=== PATIENT | male | born 1970 | race Asian ===

== ENCOUNTER 2018-12-10 10:48 | Inpatient (IN) | payer OTHER ==
[~2018-12-10] VITALS: Ht 177.8 cm; Wt 68.0 kg
[2018-12-10] VITALS (14 sets, daily range): BP systolic 102–128; BP diastolic 61–89
[~2018-12-10 10:48] MED LIST: ceFAZolin sod 2 GM in D5W 110 ML IVPB SCH
[2018-12-10] MEDS ORDERED: LR 1000ml 1,000 ML IVLG SCH (11:19)
[2018-12-10] MEDS ORDERED: Meperidine 50mg/ml Inj(FOR RIGORS ONLY) IVP PRN (11:30)
[2018-12-10] MEDS ORDERED: fentaNYL 100 mcg/2 mL IV PRN (11:30)
[2018-12-10] MEDS ORDERED: Hydromorphone 0.5mg/0.5ml inj IVP PRN (11:30)
[2018-12-10] MEDS ORDERED: Ketorolac 30mg Inj IV PRN ×2 (11:30)
[2018-12-10] MEDS ORDERED: HYDROcodone/Acetamin 7.5/325 tab ORAL PRN ×3 (11:30→16:00)
[2018-12-10] MEDS ORDERED: Metoclopramide 10mg/2ml Inj IVP PRN ×2 (11:30→16:00)
[2018-12-10] MEDS ORDERED: LORazepam Inj 2mg/ml 1ml IV PRN (11:30)
[2018-12-10] MEDS ORDERED: Norco 5mg/325mg tab ORAL PRN ×2 (11:30→16:00)
[2018-12-10] MEDS ORDERED: oxyCODONE HCL/Acetaminophen 5/325mg ORAL PRN (11:30)
[2018-12-10] MEDS ORDERED: DiphenhydrAMINE 50mg/ml Inj IVP PRN (11:30)
[2018-12-10] MEDS ORDERED: Midazolam 2mg/2ml Inj IVP PRN (11:30)
[2018-12-10] MEDS ORDERED: Atropine Sulfate 0.4mg/ml inj IVP PRN (11:30)
[2018-12-10] MEDS ORDERED: Acetaminophen (Non formulary) 100 ML IV ONE (11:30)
--- NOTE | 2018-12-10 11:40 | 48 Hour Post Anesthesia Eval ---
Post Anesthesia Evaluation Procedure: ACDF C6-7 Date of Evaluation: Dec 10, 2018 Time of Evaluation: 18:12 Blood Pressure Systolic: 132 0: 64 Pulse Rate: 67 Respiratory Rate: 18 Temperature (Fahrenheit): 98.4 O2 Sat by Pulse Oximetry: 99 Airway: patent Nausea: No Vomiting: No Pain Intensity: 2 Hydration Status: adequate Cardiopulmonary Status: Stable Mental Status/LOC: patient returned to baseline Follow-up Care/Observations: 0 Post-Anesthesia Complications: 0 Follow-up care needed: ready to discharge Gatito Terrell MD Dec 10, 2018 11:40
--- NOTE | 2018-12-10 11:40 | Immediate Post-Op Evaluation ---
Immediate Post-Op Evalulation Immediate Post-Op Evalulation Procedure: ACDF C6-7 Date of Evaluation: Dec 10, 2018 Time of Evaluation: 16:08 IV Fluids: 800 LR Blood Products: 0 Estimated Blood Loss: 20 Urinary Output: 0 Blood Pressure Systolic: 122 Blood Pressure Diastolic: 89 Pulse Rate: 76 Respiratory Rate: 16 O2 Sat by Pulse Oximetry: 100 Temperature (Fahrenheit): 97.2 Pain Score (1-10): 2 Nausea: No Vomiting: No Complications 0 Patient Status: awake, reacts, patent, extubated, none Hydration Status: adequate Dru Grams Ancef IV Given Within 1 Hr of Incision: Yes Time Given: 14:16 Gatito Terrell MD Dec 10, 2018 11:40
--- NOTE | 2018-12-10 12:08 | Anethesia Preoperative Eval ---
Anesthesia Pre-op PMH/ROS General Date of Evaluation: Dec 10, 2018 Time of Evaluation: 14:02 Anesthesiologist: Xander ASA Score: ASA 1 Mallampati Score Class I : Soft palate, uvula, fauces, pillars visible Class II: Soft palate, uvula, fauces visible Class III: Soft palate, base of uvula visible Class IV: Only hard plate visible Mallampati Classification: Class II Surgeon: Manuel Diagnosis: Neck Pain Surgical Procedure: ACDF C6-7 Family History: no anesthesia problems Allergies: Coded Allergies: No Known Allergies (Unverified , 12/09/18) Medications: see eMAR Patient NPO?: Yes NPO Date: Dec 09, 2018 NPO Time: 2330 Past Medical History PSxH Narrative: Abdominal SX Anesthesia Pre-op Phys. Exam Physician Exam Last Vital Signs Date Time Temp Pulse Resp B/P (MAP) Pulse Ox O2 Delivery O2 Flow Rate FiO2 12/10/18 11:57 98.3 63 18 111/73 (86) 96 Constitutional: NAD Neurologic: CN 2-12 intact Cardiovascular: RRR Respiratory: CTA Gastrointestinal: S/NT/ND Airway Exam Mallampati Score: Class II MO: full ROM: limited Teeth: intact Anesthesia Pre-op A/P Risk Assessment & Plan Assessment: ASA 1 Plan: GA, SED, GlideScope Go Pre-Antibiotics Dru Grams Ancef IV Given Within 1 Hr of Incision: Yes Time Given: 14:16 Gatito Terrell MD Dec 10, 2018 12:08
[2018-12-10] MEDS ORDERED: Sodium Chloride 10ml vial INJ ONE (12:16)
[2018-12-10] MEDS ORDERED: Lidocaine 1% MPF 10mg/ml 5ml ONE (12:16)
[2018-12-10] MEDS ORDERED: Dexamethasone 4mg/ml vial ONE (12:16)
[2018-12-10] MEDS ORDERED: fentaNYL 100 mcg/2 mL IV ONE (12:17)
[2018-12-10] MEDS ORDERED: NKM (12:21)
[2018-12-10] MEDS ORDERED: Lidocaine 1% Plain 30 ml INJ ONE (12:22)
[2018-12-10] MEDS ORDERED: Vancomycin 1gm vial IVPB ONE (13:13)
[2018-12-10] MEDS ORDERED: Bacitracin 50000 Units Vial ONE (13:14)
[2018-12-10] MEDS ORDERED: Thrombin 5000 units TOPIC ONE (13:14)
[2018-12-10] MEDS ORDERED: Gelfoam Size TOPIC ONE (13:14)
[2018-12-10] MEDS ORDERED: Sterile Water Irrig 1000ml IRRIG ONE (14:00)
[2018-12-10] MEDS ORDERED: Zemuron 50mg/5ml Inj IV ONE (14:00)
[2018-12-10] MEDS ORDERED: NS Irrig 1000ml ONE (14:00)
[2018-12-10] MEDS ORDERED: LR 1000ml ONE (14:00)
[2018-12-10] MEDS ORDERED: Propofol 1,000mg/ 100ml btl IV ONE (14:00)
[2018-12-10] MEDS ORDERED: Glycopyrrolate 0.2mg/ml 1ml Vial ONE (15:25)
[2018-12-10] MEDS ORDERED: Neostigmine 1mg/ml 10ml Inj ONE (15:25)
--- NOTE | 2018-12-10 15:45 | Pre-Procedure Note/Attestation ---
Pre-Procedure Note/Attestation Complete Prior to Procedure Planned Procedure: not applicable Procedure Narrative: ACDF C67 Indications for Procedure Pre-Operative Diagnosis: C67 hnp Attestation I attest that I discussed the nature of the procedure; its benefits; risks and complications; and alternatives (and the risks and benefits of such alternatives ), prior to the procedure, with the patient (or the patient's legal special service representative). I attest that, if there was a reasonable possibility of needing a blood transfusion, the patient (or the patient's legal special service representative) was given the [facility] standardized written summary, pursuant to the [place] Blood Safety Act ([place] Health and Safety Code # 1645, as amended). I attest that I re-evaluated the patient just prior to the surgery and that there has been no change in the patient's H&P, except as documented below: Juan J Jackson MD Dec 10, 2018 15:45
--- NOTE | 2018-12-10 15:46 | Brief Operative Note ---
Immediate Post Operative Note Operative Note Chief Complaint: hnp radiculopathy Pre-op Diagnosis: C67 hnp Procedure: ACDF C67 Post-op Diagnosis: same as pre-op Findings: consistent w/pre-op dx studies Surgeon: Manuel Forensic Identification Specialist: Gabrielle Anesthesia: general Specimen: none Complications: none Condition: stable Fluids: ivf Estimated Blood Loss: minimal Drains: none Implant(s) used?: Yes - nuvasive Juan J Roberts MD Dec 10, 2018 15:46
[2018-12-10] MEDS ORDERED: Milk of Magnesia 30ml Ud ORAL PRN (16:00)
[2018-12-10] MEDS ORDERED: HYDROmorphone 1mg/ml Carpuject IVP PRN (16:00)
[2018-12-10] MEDS ORDERED: Morphine Sulfate 4mg/ml Inj (IV/IM USE ONLY) IV PRN ×2 (16:00)
[2018-12-10] MEDS ORDERED: Chloraseptic Spray 20mL Bottle ORAL PRN (16:00)
[2018-12-10] MEDS ORDERED: Naloxone 0.4mg/ml Inj IVP PRN (16:00)
[2018-12-10] MEDS ORDERED: Morphine Sulfate 2mg/ml Inj IV PRN (16:00)
--- NOTE | 2018-12-10 17:13 | Diagnostic Imaging Report ---
INDICATION: Pain, intraoperative TECHNIQUE: Intraoperative imaging Fluoroscopy time: 5 seconds Total dose: 0.70405 mGym2 Total number of images: 2 COMPARISON: None FINDINGS: Intraoperative images demonstrate anterior fusion hardware at C6-7. IMPRESSION: Intraoperative imaging, as described
[2018-12-10] MEDS: NS w/KCl 20mEq 1,000 ML IV SCH (18:27)
[2018-12-10] MEDS: Docusate 100mg cap ORAL SCH (18:28)
--- NOTE | 2018-12-10 18:28 | Cardiology Progress Note ---
Assessment/Plan Assessment/Plan [id number] seen at request of dr reddy hopefully home tomorrow when ok by surgery Objective Last 24 Hour Vital Signs Date Time Temp Pulse Resp B/P (MAP) Pulse Ox O2 Delivery O2 Flow Rate FiO2 12/10/18 16:53 97.8 58 16 119/81 99 Nasal Cannula 3 12/10/18 16:40 57 15 121/86 100 Nasal Cannula 3 12/10/18 16:30 58 15 125/82 100 Nasal Cannula 3 12/10/18 16:18 60 18 124/82 100 Simple Mask 6 12/10/18 16:07 71 15 128/85 100 Simple Mask 6 12/10/18 16:02 73 13 128/88 100 Simple Mask 6 12/10/18 15:57 97.2 76 16 123/89 100 Simple Mask 6 12/10/18 15:57 67 18 99 12/10/18 15:55 76 16 100 12/10/18 12:21 Room Air 12/10/18 11:57 98.3 63 18 111/73 (86) 96 Rivera Latham MD Dec 10, 2018 18:28
[2018-12-10] MEDS: Dexamethasone 4mg/ml vial IVP SCH (20:20)
[2018-12-10] MEDS: ceFAZolin sod 1 GM in D5W 55 ML IV SCH (21:37)
[2018-12-10] MEDS ORDERED: ceFAZolin sod 1 GM in D5W 55 ML IV SCH (22:00)
[2018-12-11] VITALS: BP 101/61
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
[2018-12-11] MEDS: Dexamethasone 4mg/ml vial IVP SCH ×2 (01:54→08:23)
[2018-12-11 04:00] VITALS: BP 101/61
[2018-12-11] MEDS: NS w/KCl 20mEq 1,000 ML IV SCH (04:11)
[2018-12-11] MEDS: ceFAZolin sod 1 GM in D5W 55 ML IV SCH (06:01)
[2018-12-11 08:00] VITALS: BP 99/61
[2018-12-11] MEDS: Docusate 100mg cap ORAL SCH (08:23)
[2018-12-11 12:00] VITALS: BP 116/66
--- NOTE | 2018-12-11 12:17 | General Progress Note ---
Assessment/Plan Assessment/Plan C67 hnp ACDF C67 PLAN 1. incentive spirometry 2. SCD 3. PT evaluation and therapy 4. Hydration 5. Pain management 6. discharge once stable with outpatient follow up Subjective Date patient seen: Dec 10, 2018 Allergies: Coded Allergies: No Known Allergies (Unverified , 12/09/18) Subjective asked to follow post op Objective Last 24 Hour Vital Signs Date Time Temp Pulse Resp B/P (MAP) Pulse Ox O2 Delivery O2 Flow Rate FiO2 12/10/18 18:30 97.7 60 18 108/74 (85) 100 12/10/18 18:00 97.8 61 18 105/73 (84) 99 12/10/18 17:30 97.4 63 18 107/75 (86) 97 12/10/18 16:53 97.8 58 16 119/81 99 Nasal Cannula 3 12/10/18 16:40 57 15 121/86 100 Nasal Cannula 3 12/10/18 16:30 58 15 125/82 100 Nasal Cannula 3 12/10/18 16:18 60 18 124/82 100 Simple Mask 6 12/10/18 16:07 71 15 128/85 100 Simple Mask 6 12/10/18 16:02 73 13 128/88 100 Simple Mask 6 12/10/18 15:57 97.2 76 16 123/89 100 Simple Mask 6 12/10/18 15:57 67 18 99 12/10/18 15:55 76 16 100 12/10/18 12:21 Room Air Height (Feet): 5 Height (Inches): 10.00 Weight (Pounds): 150 Objective WDWN NAD clear breath sounds bilaterally without rhonchi or wheeze [id number] without MRG NABS nontender no HSM no CCE nonfocal Yandel Orozco MD Dec 11, 2018 12:17
--- NOTE | 2018-12-11 12:18 | General Progress Note ---
Assessment/Plan Assessment/Plan C67 hnp ACDF C67 PLAN 1. incentive spirometry 2. SCD 3. able to ambulate 4. taking po 5. Pain management 6. discharge home Subjective Allergies: Coded Allergies: No Known Allergies (Unverified , 12/09/18) Subjective improved cleared for dc Objective Last 24 Hour Vital Signs Date Time Temp Pulse Resp B/P (MAP) Pulse Ox O2 Delivery O2 Flow Rate FiO2 12/11/18 08:46 Nasal Cannula 3.0 12/11/18 08:00 97.9 62 18 99/61 (74) 95 12/11/18 04:00 97.8 66 18 101/61 (74) 96 12/11/18 00:00 97.8 62 18 101/61 (74) 97 12/10/18 21:00 97.7 62 18 102/61 (75) 97 12/10/18 21:00 Nasal Cannula 3.0 12/10/18 20:00 97.8 62 18 109/71 (84) 96 12/10/18 19:00 97.7 62 18 109/76 (87) 99 12/10/18 18:59 97.8 12/10/18 18:30 97.7 60 18 108/74 (85) 100 12/10/18 18:00 97.8 61 18 105/73 (84) 99 12/10/18 17:30 97.4 63 18 107/75 (86) 97 12/10/18 16:53 97.8 58 16 119/81 99 Nasal Cannula 3 12/10/18 16:40 57 15 121/86 100 Nasal Cannula 3 12/10/18 16:30 58 15 125/82 100 Nasal Cannula 3 12/10/18 16:18 60 18 124/82 100 Simple Mask 6 12/10/18 16:07 71 15 128/85 100 Simple Mask 6 12/10/18 16:02 73 13 128/88 100 Simple Mask 6 12/10/18 15:57 97.2 76 16 123/89 100 Simple Mask 6 12/10/18 15:57 67 18 99 12/10/18 15:55 76 16 100 12/10/18 12:21 Room Air Intake and Output 12/10/18 12/11/18 19:00 07:00 Intake Total 1100 ml 1255 ml Output Total 20 ml 220 ml Balance 1080 ml 1035 ml IV Total 1100 ml 1255 ml Output Urine Total 200 ml Estimated Blood Loss 20 ml 20 ml # Voids 1 1 Height (Feet): 5 Height (Inches): 10.00 Weight (Pounds): 150 Objective WDWN NAD clear breath sounds bilaterally without rhonchi or wheeze [id number] without MRG NABS nontender no HSM no CCE nonfocal Yandel Orozco MD Dec 11, 2018 12:18
[2018-12-11] MEDS ORDERED: NORCO 10-325 T1 EACH ORAL (12:37)
[2018-12-11] MEDS ORDERED: SOMA350 MG PO (12:38)
[2018-12-11] MEDS ORDERED: Flu Vaccine (Alfuria) for Pts Less than 65 Years old IM ONE (14:00)
[2018-12-11] MEDS ORDERED: Tubing IV Secondary IV ONE (14:09)
--- NOTE | 2018-12-11 15:15 | Discharge Summary ---
DATE OF ADMISSION: 12/10/2018 DATE OF DISCHARGE: 12/11/2018 PROCEDURE PERFORMED DURING ADMISSION: ACDF, C6-C7. REASON FOR ADMISSION: Herniation, C6-C7. HOSPITAL COURSE/TREATMENT RENDERED: . DISCHARGE PHYSICAL EXAMINATION: 1. The patient was ambulating with and without the assistance of physical therapy. 2. Prior to discharge home incision was clean and dry with minimal swelling. 3. Follows commands. 4. Alert and oriented. 5. Loera discontinued, voiding. 6. Incentive spirometer at bedside. 7. IVF hep locked. MOTOR: Demonstrates expected postoperative bulk and tone. Moves biceps, triceps, and deltoid musculature on command. Moves hip flexors, quadriceps, tibialis anterior, EHL, gastrocsoleus musculature on command as well. TREATMENT RENDERED: 1. Daily nursing care. 2. Physical Therapy. 3. Occupational Therapy. 4. Intravenous medications. 5. Oral medications. 6. Daily postoperative examinations by Spine surgery team. CONDITION OF THE PATIENT ON DISCHARGE: The condition on discharge is stable for discharge to home. DISCHARGE INSTRUCTIONS: Our specific instructions relating to physical activity, medications diet and followup care are detailed in our standard operative folder and were given to this patient prior to surgery. We will however summarize these briefly as stated below. Regarding physical activity, we would like the patient to limit their flexion, extension, and rotation. We also require a limitation on their bending, lifting, and twisting. All medication has been called in prior to surgery to their pharmacy of choice. They can resume their regular diet once tolerated. We would like them to shower and limit soaking the wound in a tub/Jacuzzi/the ocean for a period of one month or until the incision is completely healed. We will have them follow up in our office in three weeks time for their regularly scheduled appointment. They understand to call our office tomorrow to schedule the time for their three week followup appointment. The patient will notify us should they experience any increase in the severity of pain, redness/swelling/ or drainage from their incision. Juan J Jackson M.D. DR: LETI JOB#: [id number] CC:
--- NOTE | 2018-12-11 15:45 | Discharge Summary ---
DATE OF ADMISSION: 12/10/2018 DATE OF DISCHARGE: 12/11/2018 PROCEDURE PERFORMED DURING ADMISSION: Anterior cervical discectomy and fusion, C6-C7. REASON FOR ADMISSION: Herniation, C6-C7. HOSPITAL COURSE/TREATMENT RENDERED: . DISCHARGE PHYSICAL EXAMINATION: 1. The patient was ambulating with and without the assistance of physical therapy. 2. Prior to discharge home incision was clean and dry with minimal swelling. 3. Follows commands. 4. Alert and oriented. 5. Loera discontinued, voiding. 6. Incentive spirometer at bedside. 7. IVF hep locked. MOTOR: Demonstrates expected postoperative bulk and tone. Moves biceps, triceps, and deltoid musculature on command. Moves hip flexors, quadriceps, tibialis anterior, EHL, gastrocsoleus musculature on command as well. TREATMENT RENDERED: 1. Daily nursing care. 2. Physical Therapy. 3. Occupational Therapy. 4. Intravenous medications. 5. Oral medications. 6. Daily postoperative examinations by Spine surgery team. CONDITION OF PATIENT ON DISCHARGE: The condition on discharge is stable for discharge to home. DISCHARGE INSTRUCTIONS: Our specific instructions relating to physical activity, medications, diet, and followup care are detailed in our standard operative folder and were given to this patient prior to surgery. We will however summarize these briefly as stated below. Regarding physical activity we would like the patient to limit their flexion, extension and rotation. We also require a limitation on their bending, lifting, and twisting. All medication has been called in prior to surgery to their pharmacy of choice. They can resume their regular diet once tolerated. We would like them to shower and limit soaking the wound in a tub/Jacuzzi/the ocean for a period of one month or until the incision is completely healed. We will have them follow up in our office in three weeks time for their regularly scheduled appointment. They understand to call our office tomorrow to schedule the time for their three week followup appointment. The patient will notify us should they experience any increase in the severity of pain, redness/swelling/ or drainage from their incision. Juan J Jackson M.D. DR: MAHENDRA/LAURA JOB#: [id number] CC:
--- NOTE | 2018-12-11 21:15 | Operative Note - Dictated ---
DATE OF OPERATION: 12/10/2018 SURGEON: Juan J Jackson M.D., Orthopaedic Spine Surgeon. IMAGING CENTER MANAGER: ISAIAH Del Valle. PREOPERATIVE DIAGNOSES: 1. Intractable neck pain. 2. Radiculopathy. 3. Herniation, C6-C7. 4. Neural foraminal stenosis, C6-C7. 5. Stenosis. POSTOPERATIVE DIAGNOSES: 1. Intractable neck pain. 2. Radiculopathy. 3. Herniation, C6-C7. 4. Neural foraminal stenosis, C6-C7. 5. Stenosis. PROCEDURE PERFORMED: 1. Anterior cervical discectomy and fusion of C6-C7 with NuVasive Interlock C, size 6, with Osteocel allograft bone 1 mL and 3 screws of 14 mm length. 2. Use of intraoperative microscope. 3. Motor-evoked potential monitoring. 4. Somatosensory-evoked potential monitoring. 5. Supervision and interpretation of fluoroscopy. COMPLICATIONS: None. ANESTHESIA: General. ESTIMATED BLOOD LOSS: Less than 100 mL. INDICATIONS FOR SURGERY: This patient is a 48-year-old male, who has history of intractable neck pain, radiculopathy, herniation at C6-C7, neural foraminal stenosis at C6-C7, and stenosis. We tried a course of conservative management, but despite this course, there was still a significant component of persistent, recalcitrant neck pain and arm pain. The MRI demonstrated significant neural foraminal compromise secondary to disc herniations at C6-C7. We had a long discussion with Young regarding the risks and benefits of surgery. Our discussion included, but was not limited to nonoperative management, chiropractic management, another epidural steroid injection as well as definitive management in the form of surgery. We recommended an anterior cervical discectomy and fusion of C6-C7 as final definitive management. We reviewed the risks and benefits of surgery with the patient. Our discussion included a comprehensive review of the clinical issues and the nature of the clinical decision. We reviewed the alternatives, including doing nothing. The patient elected to proceed accordingly with anterior cervical discectomy and fusion of C6-C7 with NuVasive Interlock C, size 6, with Osteocel allograft bone 1 mL and 3 screws of 14 mm length. We had a long discussion regarding the risks, alternatives, and benefits of surgery. Our description of the risks included a discussion in person as well as a signed consent, which detailed all pertinent risks from the procedure itself. Briefly, our discussion included but was not limited to infection, bleeding, pseudarthrosis, spinal cord injury, neurovascular injury, dural tear, CSF leak, neuropathy, paralysis, permanent weakness/drop foot/drop arm, paresthesias, blindness, palsy, and weakness. The patient understood there may be a need for a revision surgery or additional procedures. Approach-related complications including dysphonia, dysphagia, blindness, permanent vocal cord and neural injury, hematoma, swallowing, and breathing difficulty. Medical complications were reviewed including liver, kidney, shock, cardiopulmonary failure, anesthesia complications including , swelling, damage to the musculature, larynx/voice injury or loss, esophagus/throat, trachea, blood vessels and muscles/muscular sprain and lungs/pneumothorax during this surgical procedure; injury to deeper structures may be temporary or permanent. After this review of risks, the patient understood these and elected to proceed. A written and verbal consent was given. We discussed the pros and cons of all the alternatives. We discussed the uncertainties associated with the decision. Afterwards I assessed the patient's understanding and explored their preferences. All questions were answered and no guarantees were given. Medical clearance was obtained prior to surgery. The family was notified at one-hour intervals throughout the procedure to provide for consistent updates. INTRAOPERATIVE FINDINGS: A broad-based disc herniation, which was found posterior to a distinct tear/rent in the posterior longitudinal ligament causing a considerable amount of neural foraminal stenosis with significant encroachment on the neural foramina and spinal cord on the left and right side mauricio bilobed manner but more present along the right side. DESCRIPTION OF PROCEDURE: Under the benefit of general endotracheal anesthesia and with the assistance of the entire operative team, the patient was moved from the [facility] onto the operative table in the supine position. The head was secured and carefully positioned appropriately. Bilateral arms were secured with Gel Pads and foam and all bony prominences were padded. For the bilateral lower extremities, SCD and IVONNE hose were placed for DVT prophylaxis. A surgical timeout was called, which corroborated our planned procedure of anterior cervical discectomy and fusion of C6-C7. Preoperative antibiotics were administered within 30 minutes of the incision for antibiotic prophylaxis. Using lateral fluoroscopic radiography, the operative levels were delineated. Next, the wound was prepped and draped with chlorhexidine and sterile drapes. An incision was based on lateral fluoroscopy and we centered our incision at the C6-C7 interspace and next using a standard Garcia-Wong anterior-based approach, the incision was taken down through the skin and subcutaneous tissues until the vertebral bodies and their corresponding disc spaces were visualized. A needle was placed into the interspace to confirm placement of the operative interspace and we performed the remainder of procedure under microscopic visualization. Next, using a bipolar and Bovie cautery to ensure meticulous hemostasis, the longus colli was mobilized bilaterally and retractors were placed deep to the longus colli bilaterally to address retraction. Next, we turned our attention to the radical anterior discectomy. This was initially performed at C6-C7 first by using a 15 blade scalpel followed by narrow pituitaries and a Microsect 5-B curette was used to denude the endplate of all cartilaginous tissue. Next, using a Kuldat AM8 drill bit, the vertebral endplates were denuded in a [id number] and [id number]-ap-[id number] fashion, and ultimately the posterior uncinate joints bilaterally and posterior osteophytic lips and margins causing central and lateral impingement were carefully denuded until visualization of the posterior longitudinal ligament was possible. There was a distinct tear noted in the PLL and through this tear was clear evidence of migration of soft mobile disc material which was probed and carefully resected with a ricks. An endplate preparation was performed in the exact same fashion using an intervertebral manager hotel, sequential distraction was obtained throughout the disc space. We saw a tear/rent in the PLL and this was carefully mobilized and dissected using a Microsect 1-B curette until we visualized a broad-based disc herniation with compression of the spinal cord as well as neural foramina, which was right-sided. This neural foraminal compression was carefully resected using a Kerrison-1 and Kerrison-2 rongeurs until complete decompression of the spinal cord was visualized and complete decompression of the neural foramina and nerve root therein as well as the axilla and lateral margin of the nerve root was visualized and subsequently completely decompressed. We next turned our attention towards trialing our implant within the disc space. We initially tried size 5 and afterwards size 6 trial from the NuAceable system at each level, which appeared to be appropriate under AP and lateral fluoroscopy as well as in terms of its height, depth, width, and lack of toggle. The PEEK (polyetheretherketone) interbody cages were then both packed with allograft bone from Osteocel and local autograft bone matrix. Next, these were then carefully advanced and secured into their intervertebral spaces under direct visualization and with supervision of AP and lateral fluoroscopic views. We next turned our attention towards plating. Plating was performed with [employer] Interlock-C plating system. A total of 3 screws, size 14 mm in length were inserted and confirmed under AP and lateral fluoroscopy and confirmed to be in excellent position. After a finger sweep, we confirmed removal of all sponges. The retractor was removed and we next turned our attention to meticulous hemostasis with FloSeal and bipolar cautery. After the sponge and needle count was again found to be correct with our second count, we next turned our attention to closure. The wound was again copiously irrigated with antibiotic-impregnated saline. Closure consisted of 4-0 clear nylon for the platysma, and 6-0 clear nylon for the superficial skin. Final skin closure and dressings consisted of Dermabond. Prior to final closure, a final radiograph was obtained, which demonstrated the hardware was intact with excellent position throughout. The patient tolerated the procedure well. The patient was carefully extubated after the conclusion of surgery. We discussed the findings of the surgery with the family upon completion of the case. At this point, the patient was transferred to the spine floor for further observation. Juan J Jackson M.D. DR: LETI JOB#: [id number] CC: HOLLIS
== END 2018-12-11 13:39 | disposition home or self-care (01) | DRG 473 ==
LOC: SDSOVERFLO 10:48 → 3E 17:11
PROC: 4A11X4G Monitoring of Peripheral Nervous Electrical Activity, Intraoperative, External Approach (ICD-10-PCS; principal; 2018-12-10 12:30)
PROC: 0RT30ZZ Resection of Cervical Vertebral Disc, Open Approach (ICD-10-PCS; principal; 2018-12-10 12:30)
PROC: 0RG10A0 Fusion of Cervical Vertebral Joint with Interbody Fusion Device, Anterior Approach, Anterior Column, Open Approach (ICD-10-PCS; principal; 2018-12-10 12:30)
DX: M50.123 Cervical disc disorder at C6-C7 level with radiculopathy (principal); M48.00 Spinal stenosis, site unspecified; R11.0 Nausea
CPT/HCPCS: 36415; 72040; 76001; 86850; 86900; 86901; 87081; 90686; J2405; J2710